=== PATIENT | male | born 1980 | race African-American/Black ===

== ENCOUNTER 2018-06-14 11:27 | Emergency (ER) | payer SELFPAY ==
[~2018-06-14] VITALS: Ht 182.9 cm; Wt 93.0 kg
[2018-06-14 11:37] VITALS: BP 150/81
[2018-06-14] MEDS ORDERED: IBUPROFEN 400 MG TABLET ONE (11:49)
[2018-06-14] MEDS ORDERED: IBUPROFEN 400 MG TABLET PO ONE (12:00)
== END 2018-06-14 11:54 | disposition home or self-care (01) ==
LOC: ER 11:27
DX: R51 Headache (principal); Z88.0 Allergy status to penicillin; Z60.2 Problems related to living alone

== ENCOUNTER 2023-12-28 15:47 | Emergency (ER) | payer SELFPAY | END 2023-12-28 16:36 | disposition left against medical advice (07) | LOC: ER 15:47 | DX: R10.9 Unspecified abdominal pain (principal); Z53.21 Procedure and treatment not carried out due to patient leaving prior to being seen by health care provider ==

== ENCOUNTER 2024-03-04 14:06 | Emergency (ER) | payer MEDICAID ==
[~2024-03-04] VITALS: Ht 182.9 cm; Wt 95.3 kg
[2024-03-04] MEDS ORDERED: NAPR-1009 PO (15:25)
[2024-03-04] MEDS ORDERED: GUAI5SYR GT (15:25)
[2024-03-04] MEDS ORDERED: GUAIFENESIN/D-METHORPHAN HB 5 ML UDC ONE (15:30)
[2024-03-04] MEDS ORDERED: NAPROXEN 250 MG TABLET ONE (15:31)
[2024-03-04] MEDS: NAPROXEN 500 MG TABLET PO STA (15:34)
[2024-03-04] MEDS: GUAIFENESIN/D-METHORPHAN HB 5 ML UDC PO ONE (15:34)
[2024-03-04 15:38] VITALS: BP 137/70; TEMP 97.9; O2SAT 100
== END 2024-03-04 15:39 | disposition home or self-care (01) ==
LOC: ER 14:21
DX: S83.92XA Sprain of unspecified site of left knee, initial encounter (principal); F19.10 Other psychoactive substance abuse, uncomplicated; Z60.2 Problems related to living alone; Y30.XXXA Falling, jumping or pushed from a high place, undetermined intent, initial encounter; Y93.67 Activity, basketball; Y92.39 Other specified sports and athletic area as the place of occurrence of the external cause; Y99.8 Other external cause status
CPT/HCPCS: 73564-TC